=== PATIENT | female | born 1980 | race African-American/Black ===

== ENCOUNTER 2023-04-08 13:15 | Emergency (ER) | payer OTHER, SELFPAY ==
[2023-04-08 13:32] VITALS: BP 134/88; PULSE 86; RESP 16; TEMP 37.2; O2SAT 100
--- NOTE | 2023-04-08 13:52 | ED.FEMALEGU ---
HPI - Female Genitourinary General Chief complaint: Urogenital-Female Stated complaint: UTI Time Seen by Provider: 04/08/23 13:46 Source: patient and RN notes reviewed Mode of arrival: ambulatory Limitations: no limitations History of Present Illness HPI Narrative: patient presents today complaining of a 2 day history of hematuria, dysuria, frequency, and headache that started today. Denies abdominal pain, back pain. She has been taking azo. Last dose was 7:00 a.m. this morning. Related Data Allergies Allergy/AdvReac Type Severity Reaction Status Date / Time No Known Allergies Allergy Unknown Unverified 04/08/23 13:27 Review of Systems Review of Systems: CONSTITUTIONAL: Denies body aches, fever, chills, or sweats. EYES: Denies visual changes, redness, or discharge. ENT: Denies rhinorrhea, congestion, sore throat, or otalgia. CARDIOVASCULAR: Denies chest pain, palpitations, or edema. RESPIRATORY: Denies cough or dyspnea. GASTROINTESTINAL: Denies abdominal pain, nausea, vomiting, or diarrhea. GENITOURINARY: + Dysuria, hematuria, frequency. SKIN: Denies rash, itching, or wounds. MUSCULOSKELETAL: Denies back pain, joint pain, or myalgia. NEUROLOGIC: Denies headache, numbness, tingling, or weakness. PSYCH: Denies depression or anxiety. PMFSH Comments At time of signature, I have reviewed and agree with nursing past medical, surgical, social and family history unless otherwise noted. Please see nursing chart for further information. There is no relevant family history pertinent to the presenting complaint Exam Narrative: GENERAL: Well-appearing, well-nourished, and in no acute distress. HEAD: Normocephalic, atraumatic. EYES: EOMI. No redness or drainage. Conjunctivae normal. ENT: Mucous membranes pink and moist. NECK: Normal AROM. CHEST: No respiratory distress. Clear to auscultation. HEART: Regular rate and rhythm. No murmur appreciated. Normal peripheral pulses. ABDOMEN: Soft, nontender, nondistended, normal active bowel sounds.- CVAT EXTREMITIES: Normal range of motion. No edema. SKIN: Warm, dry, no rash. Capillary refill normal. Normal skin turgor. NEURO: No focal deficits. Alert and oriented x3. Gait steady. PSYCH: Normal affect. No signs of depression or anxiety. Course Course Level of Care: Express Care Visit Vital Signs Vital signs: Vital Signs Temperature 99.0 F 04/08/23 13:32 Pulse Rate 86 04/08/23 13:32 Respiratory Rate 16 04/08/23 13:32 Blood Pressure 134/88 04/08/23 13:32 Pulse Oximetry 100 04/08/23 13:32 Oxygen Delivery Room Air 04/08/23 13:32 Temperature 99.0 F 04/08/23 13:32 Pulse Rate 86 04/08/23 13:32 Respiratory Rate 16 04/08/23 13:32 Blood Pressure 134/88 04/08/23 13:32 Pulse Oximetry 100 04/08/23 13:32 Oxygen Delivery Room Air 04/08/23 13:32 Reviewed. Pt has been instructed to follow up with her PCP regarding her elevated blood pressure today. MDM - Female Genitourinary MDM Narrative Medical decision making narrative: urinalysis is consistent with infection. Culture pending.Will send prescription for Keflex. Anticipatory guidance given. Differential Diagnosis Differential diagnosis: Likely urinary tract infection, vaginitis, cystitis and other ( pyelonephritis) Lab Data Attestation: I reviewed the patient's lab results. Labs: Urine Glucose Negative Reference Range: Negative Urine Bilirubin Negative Reference Range: Negative Urine Ketone Negative Reference Range: Negative Urine Specific [place] 1.010 Reference Range:1.001-1.035 Urine Blood 3+ Reference Range: N
== END 2023-04-08 13:59 | disposition home or self-care (01) ==
PROVIDERS: Emergency Provider Nurse Practitioner
DX: N30.01 Acute cystitis with hematuria (principal)
CPT/HCPCS: 81003; 87077; 87086; 87186; 99213; G0463

== ENCOUNTER 2023-07-31 13:45 | Emergency (ER) | payer OTHER, SELFPAY ==
--- NOTE | ~2023-07-31 | XR_ITS ---
XR foot LT min 3V 07/31/2023 14:47 Indication: Left foot pain Procedure: 4 views left foot Comparison: No prior studies for comparison. Findings: Prominent degenerative calcaneal enthesophyte at the plantar surface. There is mild hallux valgus. No fracture, subluxation or dislocation. Lisfranc joint intact. No focal soft tissue abnormal ity. No foreign bodies. Impression: 1: Mild hallux valgus. Reviewed, dictated and finalized at location B. Impression: 1: Mild hallux valgus.
--- NOTE | ~2023-07-31 | XR_ITS ---
XR foot RT min 3V 07/31/2023 14:48 Indication: Foot pain. No trauma. Procedure: 4 views right foot Comparison: No prior studies for comparison. Findings: Mild osteoarthritis of the first MTP joint. There is mild hallux valgus. Lisfranc joint int act. There is prominent degenerative calcaneal enthesophyte at the plantar surface. No acute fracture or traumatic malalignment. 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 Reviewed, dictated and finalized at location B. 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
[2023-07-31 13:59] VITALS: BP 119/82; PULSE 82; RESP 18; TEMP 37.2; O2SAT 99
--- NOTE | 2023-07-31 14:28 | ED.EXTPRO ---
HPI - Extremity Problem General Chief complaint: Extremity Problem,Nontraumatic Stated complaint: both feet painful Time Seen by Provider: 07/31/23 14:29 Source: patient Mode of arrival: ambulatory Limitations: no limitations History of Present Illness HPI Narrative: 42 yo F presents with c/o pain to bilateral feet. Pt started working at [employer] approx. 2 wks ago. Noticed pain shortly after. Wearing a clog shoe with no support around back of heel. 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 States she stood most of her shift but at [employer] she is doing a lot more walking. has not seen her PCP regarding pain. Reports as a child she was told her had an extra bone in her feet. All systems reviewed and negative except as noted above. Related Data Allergies Allergy/AdvReac Type Severity Reaction Status Date / Time No Known Allergies Allergy Unknown Verified 07/31/23 14:03 Review of Systems Review of Systems: CONSTITUTIONAL: Denies fever, chills, or sweats. EYES: Denies visual changes, redness, or discharge. ENT: Denies rhinorrhea, congestion, sore throat, or otalgia. CARDIOVASCULAR: Denies chest pain, palpitations, or edema. RESPIRATORY: Denies cough or dyspnea. GASTROINTESTINAL: Denies abdominal pain, nausea, vomiting, or diarrhea. GENITOURINARY: Denies dysuria or hematuria. SKIN: Denies rash or itching. MUSCULOSKELETAL: Denies back pain . Reports pain to bilateral feet. NEUROLOGIC: Denies headache, numbness, or weakness. PSYCHIATRIC: Denies anxiety or depression. All other systems reviewed are negative, except as documented in HPI. PMFSH Comments At time of signature, agree with nursing past medical, surgical, social and family history. There is no relevant family history pertinent to the presenting complaint. Exam Narrative: GENERAL: This is a well-nourished, well-developed patient, in no apparent distress. HEAD: normocephalic, atraumatic. EYES: PERRL. Sclera clear/white. Vision is grossly intact. EARS: External ears normal NOSE: External nose normal NECK: Neck supple, non-tender without lymphadenopathy, masses or thyromegaly. CARDIOVASCULAR: Regular rate and rhythm without murmurs, gallops, or rubs. RESPIRATORY: Clear to auscultation. Breath sounds equal bilaterally. No wheezes, rales, or rhonchi. SKIN: warm, Dry, intact with no suspicious lesions or rash, good texture and turgor. NEURO: awake, alert, and oriented to person, place and time. There were no obvious focal neurologic abnormalities. EXTREMITIES: generalized tenderness to plantar aspect bilateral feet. no swelling noted. no redness or warmth concerning for infection. Course Course Level of Care: Express Care Visit Vital Signs Vital signs: Vital Signs Temperature 37.2 C 07/31/23 13:59 Pulse Rate 82 07/31/23 13:59 Respiratory Rate 18 07/31/23 13:59 Blood Pressure 119/82 07/31/23 13:59 Pulse Oximetry 99 07/31/23 13:59 Oxygen Delivery Room Air 07/31/23 13:59 Temperature 37.2 C 07/31/23 13:59 Pulse Rate 82 07/31/23 13:59 Respiratory Rate 18 07/31/23 13:59 Blood Pressure 119/82 07/31/23 13:59 Pulse Oximetry 99 07/31/23 13:59 Oxygen Delivery Room Air 07/31/23 13:59 Reviewed MDM - Extremity (Nontraumatic) MDM Narrative Medical decision making narrative: At time of signature, agree with nursing past medical, surgical, social and family history. There is no relevant family history pertinent to the presenting complaint. Imaging Data My impression: agree with radiologist Radiologist's impression: XR foot LT min 3V 07/31/2023 14:47 Indication: Left foot pain Procedure: 4 views left foot Comparison: No prior studies for comparison. Findings: Prominent degenerative calcaneal enthesophyte at the plantar surface. There is mild hallux valgus. No fracture, subluxation or dislocation. Lisfranc joint intact. No focal soft tissue abnormality. No foreign bodies.
== END 2023-07-31 15:15 | disposition home or self-care (01) ==
PROVIDERS: Emergency Provider Nurse Practitioner Family
DX: M72.2 Plantar fascial fibromatosis (principal)
CPT/HCPCS: 73630; 99214; G0463